=== PATIENT | female | born 1985 | race Caucasian/White ===

== ENCOUNTER 2019-03-13 13:26 | Inpatient (IN) | payer BC ==
[~2019-03-13] VITALS: Ht 154.9 cm; Wt 56.6 kg
[2019-03-13 13:49] VITALS: Ht 154.9 cm; Wt 56.6 kg
[2019-03-13] MEDS ORDERED: OXYTOCIN 30 UNITS/LR 500 ML IV PRN ×2 (14:00→20:30)
[2019-03-13] MEDS ORDERED: CEFAZOLIN 2 GM/50 ML (PMX) 50 ML IVPB SCH (14:00)
[2019-03-13] MEDS ORDERED: AZITHROMYCIN 500MG/NS (PMX) 250 ML IV SCH (14:00)
[2019-03-13] MEDS ORDERED: CARBOPROST 250 MCG INJ IM PRN ×2 (14:00→20:30)
[2019-03-13] MEDS ORDERED: MISOPROSTOL 200 MCG TAB PR PRN ×2 (14:00→20:30)
[2019-03-13] MEDS ORDERED: METHYLERGONOVINE 0.2 MG INJ IM PRN ×2 (14:00→20:30)
--- NOTE | 2019-03-13 14:35 | HP ---
Date/Time of Note Date/Time of Note DATE: 03/13/19 TIME: 14:32 OB - History Hx of Present Free Text/Dictation 33-year-old female 4 para 2 AB 1 at 39 weeks gestation admitted for repeat section Last Menstrual Period: Jun 15, 2018 Estimated Due Date: Mar 20, 2019 : 4 Para: 2 Spontaneous : 1 Care: Good Care Ultrasounds: Normal mid trimester US Obstetrical Complications: None Medical Complications: None Past Family/Social History * Past Medical, Surgical, Family and Obstetric Histories reviewed from chart. Blood Type: O+ Rubella: immune RPR/VDRL: Negative GBS Status: Negative HBsAG: Negative OB Admission Exam Physical Exam HEENT: WNL Heart: Rhythm Normal Lungs: Clear, Equal Abdomen: WNL Extremities: Normal Reflexes: Normal Cervical Dilatation: None Effacement: 0% Station: -3 Membranes: Ruptured Heart Rate: 140's Accelerations: Accelerations Present Decelerations: No Decelerations Varibility: Marked Contractions on Admission: None Last 72 hours Lab Results CBC & BMP 03/13/19 13:40 OB Assessment/Plan Other Assessment: Time gestation Previous section Other plan: Repeat section JEISON BAJWA MD Mar 13, 2019 14:35
[2019-03-13] MEDS ORDERED: ONDANSETRON 4 MG INJ ONE (14:59)
[2019-03-13] MEDS: LACTATED RINGER'S 1,000 ML IV SCH (14:59)
[2019-03-13] MEDS ORDERED: OXYTOCIN 10 UNIT INJ ONE (14:59)
[2019-03-13] MEDS ORDERED: morphine SULFATE/PF (10 MG/10 ML) INJ ONE (14:59)
--- NOTE | 2019-03-13 15:19 | PREAC ---
Date/Time of Note Date/Time of Note DATE: 03/13/19 TIME: 15:17 Anesthesia Eval and Record Evaluation Time Pre-Procedure Interview DATE: 03/13/19 TIME: 15:17 Age 33 Sex female NPO: 8 hrs Preoperative diagnosis IUP Planned procedure Csection Past Medical History Past Medical History: None Surgery & Anesthesia Issues No known issue Meds Anticoagulation: No Beta Melva within 24 hr: No Reason Beta Melva not given: Pt. not on B-Melva Current Medications Cefazolin Sodium/ Dextrose 50 ml @ 100 mls/hr ONCE IVPB ; Start 03/13/19 at 14:00 Azithromycin 250 ml @ 250 mls/hr ONCE IV ; Start 03/13/19 at 14:00 Oxytocin/Lactated Ringer's 500 ml @ 0 mls/hr ONCE PRN IV .VAGINAL BLEEDING; Start 03/13/19 at 14:00 Methylergonovine Maleate (Methergine) 0.2 mg ONCE PRN IM .VAGINAL BLEEDING; Start 03/13/19 at 14:00 Carboprost Tromethamine (Hemabate) 250 mcg ONCE PRN IM .VAGINAL BLEEDING; Start 03/13/19 at 14:00 Misoprostol (Cytotec) 1,000 mcg ONCE PRN AK .VAGINAL BLEEDING; Start 03/13/19 at 14:00 Lactated Ringer's 1,000 ml @ 125 mls/hr Q8H IV Last administered on 03/13/19at 14:59; Admin Dose 125 MLS/HR; Start 03/13/19 at 14:34 Meds reviewed: Yes Allergies Coded Allergies: No Known Allergy (Unverified , 03/13/19) Allergies Reviewed: Yes Labs/Studies Labs Reviewed: Reviewed by anesthesiologist Result Diagram: 03/13/19 1340 Laboratory Tests 03/13/19 13:40 Blood Bank Test 03/13/19 13:40 Antibody Screen NEGATIVE Blood Type O POSITIVE Rh Immune Globulin Candidate NO test: Positive Studies: ECG Pre-procedure Exam Last vitals BP:134/67, P:88, Spo2:100%, T:98,8 Airway: Adequate mouth opening, Adequate thyromental dist Mallampati: Mallampati II Teeth: Normal Lung: Normal Heart: Normal ASA Physical Status ASA physical status: 2 Emergency: None Planned Anesthetic Neuraxial: Spinal Planned Pain Management Sub-arachniod narcotics, Parenteral pain med Pre-operative Attestations Prior to commencing anesthesia and surgery, the patient was re-evaluated, there was verification of: *The patient's identity *The results of appropriate recent lab work and preoperative vital signs *The above evaluation not changing prior to induction *Anesthetic plan, risk benefits, alternative and complications discussed with patient/family; questions answered; patient/family understands, accepts and wishes to proceed. GEOVANNA GALARZA MD Mar 13, 2019 15:19
[2019-03-13] MEDS ORDERED: PHENYLephrine 10 MG INJ ONE (15:21)
[2019-03-13] MEDS ORDERED: FENTAnyl 50 MCG/ML VIAL ONE (15:39)
[2019-03-13] MEDS ORDERED: ACETAMINOPHEN 500 MG TAB PO STA (16:05)
[2019-03-13] MEDS ORDERED: KETOROLAC 30 MG INJ IV STA (16:05)
--- NOTE | 2019-03-13 16:05 | OPR ---
Operative Report Planned Procedure Procedure date Mar 13, 2019 Procedure(s) Repeat section at term Performed by see signature line Spice Blender: SAUNDRA EDWARD MD Anesthesiologist: GEOVANNA GALARZA MD Pre-procedure diagnosis Term gestation Previous x2 [id number] Anesthesia Type: Qhxwb0p spinal Post-Procedure Post-procedure diagnosis Status post repeat Findings Live Baby in HORACIO position Clear amniotic fluid Normal appearing right and left fallopian tubes and ovaries Estimated Blood Loss: 500 - 600 mls Specimen(s) none Grafts/Implant(s) none Complication(s) none Pt Condition post procedure: stable Disposition: PACU Procedure Description Under satisfactory anaesthesia a Pfannenstiel incision was made two fingerbreadth above and parallel to the symphysis of pubis around the previous scar and previous scar was removed Incision was extended laterally to the border of the Recti muscles on either sides. Incision was carried down with sharp and blunt dissection until fascia was reached. Anterior Recti muscle fascia was incised in mid portion and incision extended laterally to the border of skin incision. Fascia was mobilized from muscle superiorly and Recti muscles were from midline using sharp and blunt dissection. Peritoneum was visualized; Avoiding bowel and bladder it was incised . Incision was extended superiorly and inferiorly. Bladder blade was placed. Posterior pe ritoneum covering the lower segment of the uterus and lower segment of the uterus were incised.Low transverse uterine incision was made on lower segment of the uterus. Incision extended laterally to the border of Round Lig. on either sides and baby was delivered from OT. position . Amniotic fluid appeared clear. Cord blood was obtained and cord had 3 vessels . Placenta was delivered spontaneously and appeared intact and complete. Intrauterine cavity was rubbed with a laparotomy sponge. Uterine incision was closed in 2 layers using running stitches of No1 Monocryl. Hemostasis appeared secure. Ovaries and Fallopian tubes were within normal limits. Bilateral Tubal Ligation was performed by following procedure: R fallopian tube was raised in mid portion; 3 cm below the raised area single 0 Plain Gut stitch was placed. Another 0 Plain gut stitch was placed half a centimeter below the f irst and a knuckle of tube that was formed was incised above the first stitch. Same procedure was done on fallopian tube on the opposite side. Hemostasis appeared to be secure on ligated sites of either fallopian tubes. Announcing needle, lap sponge and instrument count to be correct abdomen was closed in layers as follows: Peritoneum and Recti muscles with running stitches of 2-0 Vicryl. Fascia with running stitch of No 1 PDS. Subcutaneous tissue with running stitches of 2-0 Monocryl and skin was closed using kaushik. Patient tolerated the procedure well and was transferred to [facility] in good condition. JEISON BAJWA MD Mar 13, 2019 16:05
--- NOTE | 2019-03-13 16:15 | PAC ---
Date/Time of Note Date/Time of Note DATE: 03/13/19 TIME: 16:14 Post-Anesthesia Notes Post-Anesthesia Note Activity: WNL Respiratory function: WNL Cardiovascular function: WNL Mental status: Baseline Pain reasonably controlled: Yes Hydration appropriate: Yes Nausea/Vomiting absent: Yes Comments BP:112/67, P:78, Spo2:100%, T:98,8 GEOVANNA GALARZA MD Mar 13, 2019 16:15
[2019-03-13] MEDS ORDERED: morphine 2 MG INJ IV PRN (16:30)
[2019-03-13] MEDS ORDERED: OXYTOCIN 30 UNITS/LR 500 ML IV SCH (16:30)
[2019-03-13] MEDS ORDERED: ONDANSETRON 4 MG INJ IV PRN (16:30)
[2019-03-13] MEDS ORDERED: NALOXONE (0.4 MG/ML) INJ IV PRN (16:30)
[2019-03-13] MEDS ORDERED: DIPHENHYDRAMINE 50 MG INJ IV PRN (16:30)
[2019-03-13] MEDS: KETOROLAC 30 MG INJ IV PRN (17:37)
[2019-03-13 19:45] VITALS: BP 103/61; PULSE 77; RESP 18
[2019-03-13] MEDS ORDERED: LACTATED RINGER'S 1,000 ML IV SCH (20:06)
[2019-03-13] MEDS ORDERED: LANOLIN HPA 1 PKT TOP PRN (20:30)
[2019-03-13] MEDS ORDERED: NA PHOSPHATE/BIPHOS 133 ML ENEMA PR PRN (20:30)
[2019-03-13] MEDS ORDERED: HYDROCODONE/APAP (5/325) TAB PO PRN (20:30)
[2019-03-13] MEDS: SENNA/DOCUSATE NA (8.6MG/50MG) TAB PO SCH (21:00)
[2019-03-13] MEDS: IBUPROFEN 800 MG TAB PO SCH (22:00)
[2019-03-13 23:30] VITALS: BP 117/62; PULSE 79; RESP 18
[2019-03-13] MEDS: CEFAZOLIN 2 GM/50 ML (PMX) 50 ML IVPB SCH (23:30)
[2019-03-13] MEDS: CLINDAMYCIN 300 MG CAP PO SCH (23:34)
[2019-03-14 04:00] VITALS: BP 98/65; PULSE 73; RESP 18
[2019-03-14] MEDS: IBUPROFEN 800 MG TAB PO SCH ×3 (06:00→22:21)
[2019-03-14] MEDS: CLINDAMYCIN 300 MG CAP PO SCH ×3 (06:00→18:06)
[2019-03-14] MEDS: LACTATED RINGER'S 1,000 ML IV SCH (06:00)
[2019-03-14] MEDS: CEFAZOLIN 2 GM/50 ML (PMX) 50 ML IVPB SCH ×2 (06:53→14:24)
[2019-03-14 08:00] VITALS: BP 90/52; PULSE 82; RESP 20
[2019-03-14] MEDS: SENNA/DOCUSATE NA (8.6MG/50MG) TAB PO SCH ×2 (08:52→22:20)
[2019-03-14] MEDS: KETOROLAC 30 MG INJ IV PRN (08:52)
[2019-03-14] MEDS ORDERED: BISACODYL 10 MG SUPP PR ONE (10:30)
[2019-03-14 12:00] VITALS: BP 92/46; PULSE 70; RESP 18
--- NOTE | 2019-03-14 15:07 | PN ---
Date/Time of Note Date/Time of Note DATE: 03/14/19 TIME: 15:06 Assessment/Plan VTE Prophylaxis VTE Prophylaxis Intervention: ambulation Lines/Catheters IV Catheter Type (from Nrsg): Peripheral IV Assessment/Plan Assessment/Plan Status post postop day #1 Continue to ambulate patient and advance diet Supportive care Subjective 24 Hr Interval Summary No bowel movement but passing flatus Constitutional: no complaints, improved, ambulates, BM, flatus, urine output Pain Control: well controlled Exam/Review of Systems Vital Signs Vitals Vital Signs Date Temp Pulse Resp B/P (MAP) Pulse Ox O2 O2 Flow FiO2 Time Delivery Rate 03/14/19 98.0 70 18 92/46 (61) 99 Room Air 12:00 Intake and Output 03/13/19 03/13/19 03/14/19 1414:59 22:59 06:59 IntakeIntake Total 1500 ml 925 ml OutputOutput Total 1510 ml 500 ml BalanceBalance -10 ml 425 ml Exam Free Text/Dictation Abdomen is soft with present bowel sounds and does not seem distended Incision is covered Constitutional: alert, oriented, well developed Psych: no complaints, nl mood/affect Head: normocephalic, atraumatic Eyes: nl conjunctiva, EOMI, nl lids, nl sclera ENMT: nl external ears & nose, nl lips & teeth, nl nasal mucosa & septum, mucosa pink and moist Neck: supple, non-tender Respiratory: clear to auscultation, normal air movement Cardiovascular: regular rate and rhythm, nl pulses Gastrointestinal: soft, nl liver, spleen, non-tender Musculoskeletal: nl extremities to inspection, nl gait and stance Extremities: normal pulses Neurological: SLAG WHEELER II-XII intact, nl mental status, nl speech, nl strength Skin: nl turgor, rash or lesions Lymph: nl lymph nodes Results Result Diagram: 03/14/19 0731 JEISON BAJWA MD Mar 14, 2019 15:07
[2019-03-14 16:00] VITALS: BP 95/55; PULSE 76; RESP 18
[2019-03-14] MEDS: OXYCODONE/ACETAMINOPHEN (5/325) TAB PO PRN (20:33)
[2019-03-14 20:50] VITALS: BP 93/56; PULSE 81; RESP 18
[2019-03-15 04:00] VITALS: BP 109/54; PULSE 65; RESP 17
[2019-03-15] MEDS: CLINDAMYCIN 300 MG CAP PO SCH ×4 (06:03→17:51)
[2019-03-15] MEDS: IBUPROFEN 800 MG TAB PO SCH ×3 (06:03→21:38)
[2019-03-15 08:00] VITALS: BP 109/65; PULSE 71; RESP 18
[2019-03-15] MEDS: SENNA/DOCUSATE NA (8.6MG/50MG) TAB PO SCH ×2 (08:43→21:38)
--- NOTE | 2019-03-15 13:35 | DS ---
Date/Time of Note Date/Time of Note Home today or next day DATE: 03/15/19 TIME: 13:34 Obstetrical Discharge Record Final Diagnosis Final Diagnosis: Term delivered Other Final Diagnosis Status post Section Section: Repeat Condition on Discharge Physical Assessment Last Vitals: See nurse's notes Voiding: Yes Bowel Movement: Yes Breast: Soft, non-tender, Filling Fundus: Firm Abdomen and Incision: Abdomen is soft with firm fundus Bowel sounds are present Incision appears to be healing well without induration and or erythema Calf Tenderness: No Patient Condition: Good JEISON BAJWA MD Mar 15, 2019 13:35
[2019-03-15] MEDS: OXYCODONE/ACETAMINOPHEN (5/325) TAB PO PRN (13:37)
--- NOTE | 2019-03-15 13:37 | DS ---
Date/Time of Note Date/Time of Note DATE: 03/15/19 TIME: 13:35 Discharge Summary Admission/Discharge Info Admit Date/Time Mar 13, 2019 at 13:26 Discharge Date/Time March 15 March 162018 Discharge Diagnosis Status post repeat Patient Condition: Good Procedures Repeat section Hx of Present Illness 33-year-old female underwent repeat Hospital Course She had uncomplicated hospitalization course Discharge home on the third or second day with good prognosis and condition on regular diet and fully ambulatory Follow-up Plan She was asked to refer to clinic in 4 days for staple removal Primary Care Provider Not On Staff Doctor Time spent on discharge: > 30 minutes JEISON BAJWA MD Mar 15, 2019 13:37
--- NOTE | 2019-03-15 13:46 | PD.PPDC ---
[facility] NURSE Discharge Instruction Provider Information Physician Information 33-year-old female had repeat Diagnosis [id number] Final Diagnosis: Vppbp2l That is post repeat Condition [id number] Patient Condition: Bnsuk4o Good Diet Zegaz5Wv Diet: Kkwoh2r Resume Regular Diet Activity/Restrictions [id number] Activity: Cvnpc7u May Shower Ifnxq4Jv Restrictions: Wzopy1a No Exercising No Lifting Minimize Walking Nothing in the Vagina Ysqtm8Br Return to Work or School: Egibt8y May 15, 2019 Wound/Drain Care Instructions [id number] Wound/Drain Care Instructions: Eczog2j Keep clean and dry Follow-up Follow-up with Physician: 4, Day/Days (In clinic for staple removal) Return to clinic for Oegjl7Wk MEDICAL IMAGING SPECIALIST Instructions: Iowdg6q Fever greater than 101 Chills Qgvcq1Pr OB Instructions: Tghut4u Breast Tenderness Depression Comment: Pelvic rest no hard activity for 2 months Vglhc7Jg Surgical Instructions: Agnst8s Incisional Drainage Incisional Redness JEISON BAJWA MD Mar 15, 2019 13:46
[2019-03-15] MEDS ORDERED: IBUP800T48 PO (13:47)
[2019-03-15] MEDS ORDERED: ACET325T33 PO (13:47)
[2019-03-15] MEDS ORDERED: ACETAMINOPHEN 325 MG TAB PO PRN (14:00)
[2019-03-15 15:35] VITALS: BP 114/78; PULSE 69; RESP 18
[2019-03-15 20:05] VITALS: BP 111/60; PULSE 79; RESP 20
[2019-03-16] MEDS: CLINDAMYCIN 300 MG CAP PO SCH ×3 (01:22→11:38)
[2019-03-16] MEDS: OXYCODONE/ACETAMINOPHEN (5/325) TAB PO PRN ×3 (03:11→15:00)
[2019-03-16 04:10] VITALS: BP 106/67; PULSE 61; RESP 16
[2019-03-16] MEDS: IBUPROFEN 800 MG TAB PO SCH ×2 (06:01→13:21)
[2019-03-16 08:20] VITALS: BP 97/56; PULSE 60; RESP 16
[2019-03-16] MEDS: SENNA/DOCUSATE NA (8.6MG/50MG) TAB PO SCH (08:47)
[2019-03-16] MEDS ORDERED: DIPHTH/TET/ACEL PERTUSS (ADULT) 0.5 ML VIAL IM* ONE (09:00)
[2019-03-16] MEDS ORDERED: MEASLES,MUMPS,RUBELLA VACCINE INJ SC* ONE (09:00)
--- NOTE | 2019-03-17 17:48 | DELSUM ---
Delivery Summary A-C Datetime Report Generated by CPN: 03/17/2019 17:48 DELIVERY PERSONNEL Spud Grader: Graeme, Guera MATERNAL INFORMATION Delivery Anesthesia: Spinal Medications in Delivery: see anesthesia Delivery QBL (ml): 600 Placenta Cultured: No Maternal Complications: Other Other Maternal Complications: previous section LABOR SUMMARY EDC: 03/20/2019 00:00 No. Babies in Womb: 1 Attempted: No Labor Anesthesia: None LABOR INFORMATION Reason for Induction: Not Applicable Oxytocin: N/A Group B Beta Strep: Done, Result Unknown Antibiotics # of Doses: 2 Antibiotics Time of Last Dose: 03/13/2019 15:00 Steroids Given: None Reason Steroids Not Administered: Not Applicable MEMBRANES Membranes Rupture Method: Artificial Rupture of Membranes: 03/13/2019 15:28 Length of Rupture (hr): 0.02 Amniotic Fluid Color: Clear Amniotic Fluid Amount: Moderate Amniotic Fluid Odor: None STAGES OF LABOR Stage 3 hr: 0 Stage 3 min: 1 CSECTION DELIVERY Primary Indication: Repeat Elective CSection Urgency: N/A CSection Incidence: Repeat Labor: No Labor Elective: Nonelective CSection Incision: Lower Uterine Transverse BABY A INFORMATION Infant Delivery Date/Time: 03/13/2019 15:29 Method of Delivery: Born in Route : No : N/A Forceps: N/A Vacuum Extraction: Successful Shoulder Dystocia : N/A ASSISTED DELIVERY BABY A Indication for Assisted Delivery: R C/S Catheter Prior to Procedure: Yes Station Vacuum/Forcep Apply: NA Position Vacuum/Forcep Apply: Left Occipital Anterior Vacuum Number of Pulls: 1 Vacuum Number of PopOffs: 0 Vacuum Maximum Pressure Obtained: 20 Reduce Pressure btwn Ctx: NA Vacuum Watch Dial Printer: KIWI Total Time Vacuum Applied: 15 Vacuum/Forceps Comment: [id number] 2020-11-25 SHOULDER DYSTOCIA BABY A Infant Delivery Date/Time: 03/13/2019 15:29 PRESENTATION/POSITION BABY A Presentation: Cephalic Cephalic Presentation: Vertex Vertex Position: Left Occipital Anterior Breech Presentation: N/A PLACENTA INFORMATION BABY A Placenta Delivery Time : 03/13/2019 15:30 Placenta Method of Delivery: Manual Removal Placenta Status: Delivered SCORES BABY A Heart Rate 1 min: >100 bpm Resp Effort 1 min: Good Cry Reflex Irritability 1 min: Cough/Sneeze/Pulls Away Muscle Tone 1 min: Active Motion Color 1 min: Body [place], Extremit Blue Resuscitation Effort 1 min: Tactile Stimulation SCORE 1 MIN: 9 Heart Rate 5 min: >100 bpm Resp Effort 5 min: Good Cry Reflex Irritability 5 min: Cough/Sneeze/Pulls Away Muscle Tone 5 min: Active Motion Color 5 min: Body [place], Extremit Blue Resuscitation Effort 5 min: Tactile Stimulation SCORE 5 MIN: 9 INFANT INFORMATION BABY A Gestational Age at Delivery: 39.0 Gestational Status: Full Term- 39- 40.6 Weeks Outcome : Liveborn Infant Condition : Stable Infant Sex: Male IDENTIFICATION/MEDS BABY A ID Band Number: [id number] ID Band Location: Right Leg; Left Arm Sensor Applied: Yes Sensor Number: [id number] Sensor Location : Cord Clamp Vitamin K Given : Not Given Erythromycin Given: Not Given WEIGHT/LENGTH BABY A Birthweight (gm): 3440 Infant Weight (lb): 7 Infant Weight (oz): 9 Infant Length (in): 20.50 Infant Length (cm): 52.07 CORD INFORMATION BABY A No. Cord Vessels: 3 Nuchal Cord : N/A Cord Blood Taken: Yes Suction: Mouth; Nose ASSESSMENT BABY A Complications: None Physical Findings at Delivery: Within Normal Limits Infant Respirations: Appears Normal Project Superintendent/ALS Called : No Care By: Travon FRITZ RNC Transferred To: Remains with Mother
== END 2019-03-16 17:20 | disposition home or self-care (01) | DRG 788 ==
LOC: L-D 13:26 → PP1 19:43
PROVIDERS: ADMIT Obstetrics & Gynecology; ATTEND Obstetrics & Gynecology
PROC: 10D00Z1 Extraction of Products of Conception, Low, Open Approach (ICD-10-PCS; principal; 2019-03-13 14:00)
DX: O65.5 Obstructed labor due to abnormality of maternal pelvic organs (principal); O34.211 Maternal care for low transverse scar from previous cesarean delivery; Z3A.39 39 weeks gestation of pregnancy; Z37.0 Single live birth
CPT/HCPCS: 85025; 85610; 85730; 86592; 86850; 86900; 86901; 87340; 99464; J0456; J0690; J1885; J2274; J2370; J2405; J2590; J3010; J7120